=== PATIENT | female | born 1980 | race African-American/Black ===

== ENCOUNTER 2019-03-20 13:35 | Emergency (ER) | payer BC ==
[~2019-03-20] VITALS: Ht 147.3 cm; Wt 66.7 kg
[~2019-03-20 13:35] MED LIST: NAPROSYN500 MG PO; NOHOMEMEDICATIONS; TRAMADOL 50 MG50 MG PO
[2019-03-20 14:30] LABS: ABSOLUTE NEUTROPHILS 6.4 thou/uL (1.4-8.2); EOSINOPHILS 0.8 % (0.0-3.0); HEMATOCRIT 39.8 % (37.0-47.0); HEMOGLOBIN 13.1 gm/dL (12.0-15.0); LYMPHOCYTES 19.4 % (24.0-44.0); MCV 94.1 fL (80.0-100.0); MONOCYTES 5.4 % (1.0-8.0); PLATELET COUNT 253 thou/uL (150-400); POLYS 73.4 % (36.0-66.0); RBC 4.23 mil/uL (4.20-5.00); RDW 13.3 % (10.5-14.5); WBC 8.7 thou/uL (4.0-11.0)
[2019-03-20] MEDS ORDERED: NORVASC 2.5 MG2.5 M1 PO (14:31)
[2019-03-20 15:29] LABS: CALCIUM 9.8 mg/dL (8.5-10.1); CREATININE 0.8 mg/dL (0.6-1.0); POTASSIUM 3.6 mmol/L (3.5-5.1)
[2019-03-20 15:32] LABS: ALBUMIN 4.3 g/dL (3.4-5.0); TOTAL BILIRUBIN 0.5 mg/dL (<0.1-1.0); TOTAL PROTEIN 8.5 g/dL (6.4-8.2)
[2019-03-20 16:39] LABS: URINE BILIRUBIN NEGATIVE (Negative); URINE BLOOD TRACE (Negative); URINE CLARITY CLEAR; URINE COLOR YELLOW; URINE GLUCOSE-RANDOM* NEGATIVE (Negative); URINE KETONES NEGATIVE (Negative); URINE LEUKOCYTES-REFLEX NEGATIVE (Negative); URINE NITRITE-REFLEX NEGATIVE (Negative); URINE PROTEIN (DIPSTICK) NEGATIVE (Negative); URINE UROBILINOGEN 0.2 E.U./dl (0.2-1.0)
[2019-03-20] MEDS ORDERED: ZOFRAN ODT4 MG PO (18:32)
[2019-03-20] MEDS ORDERED: NORCO 5-325 TA1 EAC1 PO (18:32)
[2019-03-20 18:36] VITALS: BP 128/70
== END 2019-03-20 18:36 | disposition home or self-care (01) ==
LOC: ER 13:35
PROVIDERS: Emergency Medicine; Nurse Practitioner Family
DX: R10.84 Generalized abdominal pain (principal); Z88.6 Allergy status to analgesic agent; K59.00 Constipation, unspecified; R93.89 Abnormal findings on diagnostic imaging of other specified body structures